=== PATIENT | male | born 1965 | race Caucasian/White ===

== ENCOUNTER 2020-06-29 13:31 | Emergency (ER) | payer MEDICARE, MEDICAID, SELFPAY ==
[2020-06-29] VITALS (7 sets, daily range): BP systolic 135–170; BP diastolic 66–95; PULSE 85–94; RESP 17–22; TEMP 36.7–37.1; O2SAT 94–97; BMI 45.7
--- NOTE | 2020-06-29 | ECG_ITS ---
Test Reason : CHEST PAIN Blood Pressure : / mmHG Vent. Rate : 082 BPM Atrial Rate : 082 BPM P-R Int : 146 ms QRS Dur : 068 ms QT Int : 352 ms P-R-T Axes : 042 -02 086 degrees QTc Int : 411 ms Normal sinus rhythm Nonspecific T wave abnormality Abnormal ECG No previous ECGs available Referred By: Joann Eaton Electronically Signed By:RAJ OH MD
--- NOTE | ~2020-06-29 | XR_ITS ---
EXAMINATION: XR CHEST CLINICAL INFORMATION: Cough. COMPARISON: 05/28/2018 TECHNIQUE: Frontal view of the chest was obtained. FINDINGS: Stable cardiac and mediastinal silhouette. Low lung volumes. No evidence of focal consolidation. No effusion, edema or pneumothorax. XR/XR chest 1V IMPRESSION: No confluent airspace disease seen.
--- NOTE | 2020-06-29 14:02 | ED.URI ---
HPI - URI/Sore Throat General Chief Complaint: Chest Pain Stated Complaint: EKG CHANGE? Time Seen by Provider: 06/29/20 14:01 Source: patient and EMS Mode of arrival: EMS Limitations: other (cognitive delay) History of Present Illness HPI Narrative: 55 yo male with asthma, HTN, HPL, cognitive impairment here with 1 week of cough, feels short of breath on exertion he denies chest pain to me, has not used his neb or rescue inhaler sent by for T wave inversions in lateral leads no prior EKGs noted in our system MD elicited complaint: cough Pertinent past history: asthma Onset (ago): week(s) (1) Consistency: constant Severity: mild Able to tolerate fluids by mouth: Yes Exacerbating factors: exertion Relieving factors: nothing Associated symptoms: cough and shortness of breath Treatments prior to arrival: none Related Data Previous Rx's Medication Instructions Recorded prednisone 40 mg PO DAILY 5 Days #10 tab 06/29/20 Allergies Allergy/AdvReac Type Severity Reaction Status Date / Time No Known Allergies Allergy Verified 06/29/20 13:49 [No Known Allergies*] Review of Systems Review of Systems: Constitutional : No Fever, No Chills ENT/Mouth : No sore throat, No Rhinorrhea, No Swallowing Difficulty Eyes: No Eye Pain, No Swelling, No Redness Cardiovascular : No Chest Pain, positive SOB, No Orthopnea, no Edema Respiratory : pos Cough, No Sputum, pos Wheezing, positive dyspnea Gastrointestinal : No Nausea, No Vomiting, No Diarrhea, No abdominal Pain, No Hematochezia, No Melena Genitourinary : No Dysuria, No Urinary Frequency, No Hematuria Musculoskeletal : No joint pain, No Myalgias Skin : No Skin Lesions, No rash Neuro : No Weakness, No Numbness, No Dizziness, No Headache Psych : No Anxiety/Panic, No Depression Heme/Lymph: No Bruising, No Lymphadenopathy Endocrine : No Polyuria, No Polydipsia All other systems reviewed and are negative PMFSH Past Medical History Medical History Asthma Dyslipidemia GERD (gastroesophageal reflux disease) HTN (hypertension) Intellectual disability Social History Social History Alcohol intake: unknown Smoking Status: Unknown if ever smoked Use of substances other than those prescribed or required for medical reasons: Unknown Advance Directives: No Advance Directives Information Provided: No Physical Exam Vital Signs: Vital Signs: Last Vital Signs Temp 98.0 F 06/29/20 16:30 Pulse 85 06/29/20 16:30 Resp 22 H 06/29/20 16:30 BP 135/87 06/29/20 16:30 Pulse Ox 94 06/29/20 16:30 Body Mass Index 45.7 Appearance: Alert. Oriented X3. No acute distress. Eyes: Pupils equal, round and reactive to light. ENT: Pharynx normal. Neck: Normal inspection. Neck supple. CVS: Normal heart rate and rhythm. Pulses normal. Respiratory: No respiratory distress. Breath sounds end exp wheezes posteriorly noted Abdomen: Soft and nontender. Skin: Skin warm and dry. Normal skin color. Normal skin turgor. Extremities: No lower extremity edema. No calf ttp Neuro: Oriented X 3. No motor deficit. No sensory deficit. Course Course Course Narrative: signed out pending repeat troponin for 5pm given EKG changes has no chest pain cannot find old one the patient states he feels much better after neb and that he does not have chest pain I do not think he has ACS, EKG changes could be old, if repeat troponin negative would send home with steroids signed out pending troponin to [facility] M[facility] - URI/Sore Throat MDM Narrative Medical decision making narrative: 55 yo male with asthma, HTN, HPL, cognitive impairment who comes in with c/o cough and feeling short of breath x 1 week, he denies chest pain to me but was sent from the clinic due to t wave inversions in the lateral leads - will need labs, EKG, troponin, he is wheezing slightly so neb ordered, EKG requests to [facility] and Mariel for prior Lab Data Result diagrams: 06/29/20 14:27 06/29/20 14:27 Labs: Lab Results 06/29/20 06/29/20 06/29/20 Range/Units 14:27 14:27 14:27 WBC 8.5 (4.8-10.8) X10*3/uL RBC 5.48 (4.60-5.80) X10*6/uL Hgb 15.8 (14.0-18.0) g/dl Hct 46.8 (42-52) % MCV 85.4 (80-98) fL MCH 28.8 (27.0-33.0) pg MCHC 33.8 (31.0-36.0) g/dl RDW 12.6 (11.0-16.0) % Plt Count 220 (160-400) X10*3/uL MPV 9.5 (9.4-12.4) fL Immature Gran % (Auto) 0.8 H (0.0-0.4) % Neut % (Auto) 69.1 (45-73) % Lymph % (Auto) 22.0 (20-40) % [place] % (Auto) 6.9 (2-11) % Eos % (Auto) 0.7 (0-4) % Baso % (Auto) 0.5 (0-2) % Lymph # (Auto) 1.9 (1.2-4.9) X10*3/uL [place] # (Auto) 0.6 (0.1-1.2) X10*3/uL Eos # (Auto) 0.1 (0.0-0.4) X10*3/uL Baso # (Auto) 0.0 (0.0-0.2) X10*3/uL Abs Immat Gran (auto) 0.07 H (0.00-0.03) X10*3/uL Absolute Neuts (auto) 5.9 (2.0-8.3) X10*3/uL Absolute Nucleated RBC 0.000 (0.0-0.012) X10*3/uL Nucleated RBC % (auto) 0.0 (0.0-0.2) /100WBC PT 12.8 (10.8-13.0) SEC INR 1.1 (0.9-1.1) APTT 33.3 (24.1-38.0) SEC Sodium 141 (135-145) mmol/L Potassium 4.0 (3.3-5.1) mmol/L Chloride 105 (96-108) mmol/L Carbon Dioxide 28 (22-29) mmol/L Anion Gap 12 (12-20) BUN 14 (9-16) mg/dL Creatinine 1.09 (0.5-1.4) mg/dL Estim Creat Clear Calc 86.6 Estimated GFR > 60 Random Glucose 108 (60-115) mg/dL Calcium 9.0 (8.4-10.2) mg/dL Magnesium 1.9 (1.6-2.6) mg/dL Total Bilirubin 0.6 (0.0-1.0) mg/dL Direct Bilirubin 0.3 (0.0-0.5) mg/dL AST 32 (5-37) U/L ALT 40 (0-40) U/L Alkaline Phosphatase 85 (39-117) U/L Troponin I High Sens (<3.5-35.0) ng/L B-Natriuretic Peptide (<100) pg/mL Total Protein 7.4 (6.5-8.0) g/dL Albumin 4.1 (3.5-5.0) g/dL Coronavirus (PCR) (Negative) Influenza Type A (PCR) (Negative) Influenza Type B (PCR) (Negative) RSV RNA Qual (PCR) (Negative) 06/29/20 06/29/20 Range/Units 14:27 14:28 WBC (4.8-10.8) X10*3/uL RBC (4.60-5.80) X10*6/uL Hgb (14.0-18.0) g/dl Hct (42-52) % MCV (80-98) fL MCH (27.0-33.0) pg MCHC (31.0-36.0) g/dl RDW (11.0-16.0) % Plt Count (160-400) X10*3/uL MPV (9.4-12.4) fL Immature Gran % (Auto) (0.0-0.4) % Neut % (Auto) (45-73) % Lymph % (Auto) (20-40) % [place] % (Auto) (2-11) % Eos % (Auto) (0-4) % Baso % (Auto) (0-2) % Lymph # (Auto) (1.2-4.9) X10*3/uL [place] # (Auto) (0.1-1.2) X10*3/uL Eos # (Auto) (0.0-0.4) X10*3/uL Baso # (Auto) (0.0-0.2) X10*3/uL Abs Immat Gran (auto) (0.00-0.03) X10*3/uL Absolute Neuts (auto) (2.0-8.3) X10*3/uL Absolute Nucleated RBC (0.0-0.012) X10*3/uL Nucleated RBC % (auto) (0.0-0.2) /100WBC PT (10.8-13.0) SEC INR (0.9-1.1) APTT (24.1-38.0) SEC Sodium (135-145) mmol/L Potassium (3.3-5.1) mmol/L Chloride (96-108) mmol/L Carbon Dioxide (22-29) mmol/L Anion Gap (12-20) BUN (9-16) mg/dL Creatinine (0.5-1.4) mg/dL Estim Creat Clear Calc Estimated GFR Random Glucose (60-115) mg/dL Calcium (8.4-10.2) mg/dL Magnesium (1.6-2.6) mg/dL Total Bilirubin (0.0-1.0) mg/dL Direct Bilirubin (0.0-0.5) mg/dL AST (5-37) U/L ALT (0-40) U/L Alkaline Phosphatase (39-117) U/L Troponin I High Sens < 3.5 (<3.5-35.0) ng/L B-Natriuretic Peptide < 10 (<100) pg/mL Total Protein (6.5-8.0) g/dL Albumin (3.5-5.0) g/dL Coronavirus (PCR) NEGATIVE (Negative) Influenza Type A (PCR) NEGATIVE (Negative) Influenza Type B (PCR) NEGATIVE (Negative) RSV RNA Qual (PCR) NEGATIVE (Negative) ECG Data Attestation: I personally reviewed and interpreted this ECG as follows: ECG interpretation date: 06/29/20 ECG interpretation time: 14:27 Interpretation: Rate: 82 Rhythm: NSR [place]: left Normal P waves. Normal JESSICA. Normal QRS complex. ST T wave : no EDUARDO, inverted I and aVL, V5-V6 qTC: normal prior studies: no prior studies at this time The study has been interpreted contemporaneously by me. . Discharge Plan Discharge Clinical Impression: Cough, Abnormal ECG Instructions: Acute Cough (ED) Additional Instructions: return to ED for any worsening symptoms or concerns Prescriptions: New prednisone 20 mg tablet 40 mg PO DAILY 5 Days Qty: 10 RF: 0 Referrals: Aniya Gaines MD [Primary Care Provider] - 2 days (outpatient stress test)
[2020-06-29] MEDS: Albuterol Sulfate (0.083%) 2.5 MG/3 ML VIAL.NEB INHALE (14:13)
[2020-06-29 14:33] LABS: MANUAL DIFF FLAG NO
[2020-06-29 14:35] LABS: Basophils Percent Auto 0.5 % (0-2); Eosinophils Absolute Auto 0.1 X10*3/uL (0.0-0.4); Eosinophils Percent Auto 0.7 % (0-4); Hematocrit 46.8 % (42-52); Hemoglobin 15.8 g/dl (14.0-18.0); Imm Gran Abs Auto 0.07 X10*3/uL (0.00-0.03); Imm Gran Pct Auto 0.8 % (0.0-0.4); Lymphocytes Absolute Auto 1.9 X10*3/uL (1.2-4.9); Mean Corpuscular HGB Conc 33.8 g/dl (31.0-36.0); Mean Corpuscular Hemoglobin 28.8 pg (27.0-33.0); Mean Corpuscular Volume 85.4 fL (80-98); Mean Platelet Volume 9.5 fL (9.4-12.4); Monocytes Absolute Auto 0.6 X10*3/uL (0.1-1.2); Monocytes Percent Auto 6.9 % (2-11); Neutrophils Absolute Auto 5.9 X10*3/uL (2.0-8.3); Neutrophils Percent Auto 69.1 % (45-73); Platelet Count 220 X10*3/uL (160-400); Red Blood Count 5.48 X10*6/uL (4.60-5.80); Red Cell Distribution Width 12.6 % (11.0-16.0); White Blood Count 8.5 X10*3/uL (4.8-10.8)
[2020-06-29 14:42] LABS: INTERNATIONAL NORM RATIO 1.1 (0.9-1.1); Prothrombin Time 12.8 SEC (10.8-13.0)
[2020-06-29 14:45] LABS: Partial Thromboplastin Time 33.3 SEC (24.1-38.0)
[2020-06-29 15:01] LABS: Alanine Aminotransferase 40 U/L (0-40); Albumin Level 4.1 g/dL (3.5-5.0); Alkaline Phosphatase 85 U/L (39-117); Anion Gap 12 (12-20); Aspartate Amino Transferase 32 U/L (5-37); Bilirubin Direct 0.3 mg/dL (0.0-0.5); Bilirubin Total 0.6 mg/dL (0.0-1.0); Blood Urea Nitrogen 14 mg/dL (9-16); Carbon Dioxide 28 mmol/L (22-29); Chloride 105 mmol/L (96-108); Creatinine Clr Calc Pharmacy 86.6; Estimated Glomerular Filt Rate > 60; Glucose Random 108 mg/dL (60-115); Magnesium 1.9 mg/dL (1.6-2.6); Sodium 141 mmol/L (135-145); Total Protein 7.4 g/dL (6.5-8.0)
[2020-06-29 15:07] LABS: B Type Natriuretic Peptide < 10 pg/mL (<100); Troponin-I High Sensitivity < 3.5 ng/L (<3.5-35.0)
[2020-06-29 15:36] LABS: Influenza A PCR NEGATIVE (Negative); Influenza B PCR NEGATIVE (Negative); Resp Syncy Virus RNA Qual PCR NEGATIVE (Negative); SARS COV2 PCR INHOUSE NEGATIVE (Negative)
[2020-06-29] MEDS: Albuterol Sulfate 90 MCG 8 GM INHALER 2 PUFF INHALE (16:58)
[2020-06-29] MEDS: methylPREDNISolone Sod Succ/PF 125 MG/2 ML VIAL 60 MG IVPUSH (17:05)
[2020-06-29 17:54] LABS: Troponin-I High Sensitivity < 3.5 ng/L (<3.5-35.0)
== END 2020-06-29 19:31 | disposition home or self-care (01) ==
PROVIDERS: Emergency Provider Emergency Medicine; PCP Family Medicine
DX: R05 Cough (principal); R94.31 Abnormal electrocardiogram [ECG] [EKG]; Z20.822 Contact with and (suspected) exposure to COVID-19; I10 Essential (primary) hypertension; J45.909 Unspecified asthma, uncomplicated; K21.9 Gastro-esophageal reflux disease without esophagitis
CPT/HCPCS: 0241U; 36415; 71045; 80048; 80076; 83735; 83880; 84484; 85025; 85610; 85730; 93005; 94640; 96374; 99284; 99285; J2930

== ENCOUNTER 2020-07-22 09:49 | Emergency (ER) | payer MEDICARE, MEDICAID, SELFPAY ==
--- NOTE | ~2020-07-22 | XR_ITS ---
EXAMINATION: XR ELBOW, RIGHT XR ELBOW, LEFT CLINICAL INFORMATION: Fall, trauma approximately 2 weeks ago. Bilateral elbow pain. COMPARISON: Radiographs right shoulder 07/22/2020 TECHNIQUE: The right elbow is imaged in 4 views. The left elbow is imaged in 3 views. There are a total of 7 views. FINDINGS: Right: There is no fracture or dislocation or capsular effusion. Articular surfaces are unremarkable. No joint narrowing. There is borderline line epicondylar spurring. Left: There is subtle fracture suggested at base radial head. The articular surfaces are unremarkable. There are no other fractures or dislocation or destructive process. No definite capsular effusion. There is some borderline spurring lateral epicondyle. XR/XR elbow LT min 3V IMPRESSION: 1. Left: Fracture base radial head. 2. Right: No fracture or dislocation.
--- NOTE | ~2020-07-22 | XR_ITS ---
EXAMINATION: XR SHOULDER, RIGHT CLINICAL INFORMATION: Fall, trauma, pain COMPARISON: Chest radiographs 06/29/2020 TECHNIQUE: Right shoulder is imaged in 3 views. FINDINGS: There is a hairline nondisplaced fracture humeral head at base greater tuberosity. There is no dislocation or destructive process. The acromioclavicular alignment is normal. The right lung apex is well expanded and shows no pneumothorax or pleural reaction. XR/XR shoulder RT min 2V IMPRESSION: Fracture base greater tuberosity.
--- NOTE | ~2020-07-22 | XR_ITS ---
EXAMINATION: XR ELBOW, RIGHT XR ELBOW, LEFT CLINICAL INFORMATION: Fall, trauma approximately 2 weeks ago. Bilateral elbow pain. COMPARISON: Radiographs right shoulder 07/22/2020 TECHNIQUE: The right elbow is imaged in 4 views. The left elbow is imaged in 3 views. There are a total of 7 views. FINDINGS: Right: There is no fracture or dislocation or capsular effusion. Articular surfaces are unremarkable. No joint narrowing. There is borderline line epicondylar spurring. Left: There is subtle fracture suggested at base radial head. The articular surfaces are unremarkable. There are no other fractures or dislocation or destructive process. No definite capsular effusion. There is some borderline spurring lateral epicondyle. XR/XR elbow RT min 3V IMPRESSION: 1. Left: Fracture base radial head. 2. Right: No fracture or dislocation.
[2020-07-22 10:20] VITALS: BP 147/92; PULSE 100; RESP 16; TEMP 36.6; O2SAT 96; BMI 45.9
--- NOTE | 2020-07-22 10:27 | PC.NURSE ---
FELL FORWARD LANDING WITH BILATERAL ARMS OUTSTRETCHED, +LARGE BRUISE LEFT UPPER ARM, PTS AFFECT IS SLOW, DENIES BLOOD THINNERS
--- NOTE | 2020-07-22 12:01 | ED_ITS ---
HPI - Extremity Problem General Chief complaint: Extremity Injury, Upper Stated complaint: bilateral arm pain Time Seen by Provider: 07/22/20 10:42 Source: patient Mode of arrival: ambulatory Limitations: no limitations History of Present Illness HPI Narrative: 55-year-old male with a past medical history of Intellectual disability, hypertension, dyslipidemia, GERD and asthma presenting to the ED after he was crossing the street and tripped due to he was walking too fast to cross the street landing on his bilateral hands then onto his elbows and shoulders approximately 2 weeks ago with persistent pain and worsening pain today. Reports he has noticed bruising to the left upper arm. Denies head injury or loss of consciousness or being on any blood thinners or paresthesias or any other injuries complaints or concerns at this time. MD Complaint: extremity pain, joint swelling and joint paint Onset (ago): week(s) (Two weeks ago worse today) Pain Consistency: constant Location: left, right, upper extremity and elbow Severity scale (1-10): 10 Quality: aching Radiation: proximal Relieving factors: nothing Exacerbating factors: range of motion and palpation Associated symptoms: denies other symptoms Related Data Previous Rx's Medication Instructions Recorded prednisone 40 mg PO DAILY 5 Days #10 tab 06/29/20 acetaminophen [Tylenol Extra 1,000 mg PO QID PRN #14 tab 07/22/20 Strength] ibuprofen 800 mg PO Q8H PRN #14 tab 07/22/20 oxycodone 5 mg PO BID PRN #10 tab 07/22/20 Allergies Allergy/AdvReac Type Severity Reaction Status Date / Time No Known Allergies Allergy Verified 06/29/20 13:49 [No Known Allergies*] Review of Systems Review of Systems: Constitutional : No changes in activity, No lethargy, No recent prior head injury, No agitation, No increased fussiness ENT/Mouth : No Ear Pain, No Nasal discharge/drainage Eyes: No Eye Pain, No Swelling, No Redness, No Foreign Body, No Vision Changes Cardiovascular : No Chest Pain, No SOB Respiratory : No Cough Gastrointestinal : No Nausea, No Vomiting, No abdominal Pain Genitourinary : No Dysuria, No Urinary Frequency, No Urinary Incontinence, No Urgency, No Flank Pain Musculoskeletal : + joint pain, No neck stiffness, No back pain/injury Skin : No lacerations Neuro : No unsteady gait, No Paresthesias, No Loss of Consciousness, No altered mental status, No Headache Yes all other systems are reviewed and are negative [facility] Past Medical History Attestation statement: The following information was validated with the patient. Medical History Asthma Dyslipidemia GERD (gastroesophageal reflux disease) HTN (hypertension) Intellectual disability Social History Social History Alcohol intake: unknown Smoking Status: Unknown if ever smoked Smoked in Last 30 Days: No Use of substances other than those prescribed or required for medical reasons: No Advance Directives: No Advance Directives Information Provided: No Physical Exam Vital Signs: Vital Signs: Last Vital Signs Temp 97.8 F 07/22/20 10:20 Pulse 100 07/22/20 10:20 Resp 16 07/22/20 10:20 BP 147/92 H 07/22/20 10:20 Pulse Ox 96 07/22/20 10:20 Body Mass Index 45.9 vital signs have been reviewed as normal and appeared to be correct. Blood pressure normal. Heart rate normal. Respiration rate normal. Temperature normal. Oxygen saturation normal. Appearance: Alert. Oriented X3. No acute distress. Head: Normal external exam. Normocephalic. Atraumatic. Eyes: PERRLA. EOMI. Conjunctiva and sclera normal. Eyelids normal. ENT: Pharynx normal. Uvula midline. Moist mucous membranes. Neck: Normal inspection. Neck supple. FROM. No adenopathy. Thyroid Normal. No meningeal signs. No neck mass noted. CVS: Normal heart rate and rhythm. Heart sound normal. No murmurs noted. Pulses normal throughout. Respiratory: No respiratory distress. Painless inspiration. Breath sounds normal. Back: No CVA tenderness. Full range of motion noted. Skin: Skin warm and dry. Normal skin color. Normal skin turgor. No rashes/lesions/lacerations noted. Extremities: Patient with tenderness to palpation to anterior aspect of right shoulder with limited range of motion although no laxity noted. No obvious deformities noted. No signs of infection noted. Patient with tenderness to palpation to bilateral elbows worse on the left at the radial head with ecchymosis noted. No laxity or signs of infection noted. No obvious deformities noted. Otherwise all other Extremities exhibit normal range of motion and nontender. Neuro: Oriented X 3. No motor deficit. No sensory deficit. Reflexes normal. Course Course Course Narrative: 55-year-old male presenting to the ED after he tripped and fell on the street while crossing the street trying to [place] with injuries to his bilateral elbows and right shoulder with persistent pain x2 weeks worse today. Imaging obtained and revealed left fracture base of the radial head of the elbow and fracture to right base of greater tuberosity. Therefore will place in a splint to the right arm and allow the patient to move his left arm with orthopedic follow-up and symptomatic treatment along with instructions return if any new or worsening symptoms. Patient understands agrees with this plan. Procedures Orthopedic Splinting/Casting Injury #1: Side: right Upper Extremity Injury Location: shoulder and upper arm Upper Extremity Immobilizer: sling/shoulder immobilizer MDM - Extremity (Nontraumatic) Medical Records Attestation: I reviewed the patient's medical records. Imaging Data Right shoulder: Attestation: I personally reviewed and interpreted this imaging study as follows: Radiologist's impression: FINDINGS: There is a hairline nondisplaced fracture humeral head at base greater tuberosity. There is no dislocation or destructive process. The acromioclavicular alignment is normal. The right lung apex is well expanded and shows no pneumothorax or pleural reaction. XR/XR shoulder RT min 2V IMPRESSION: Fracture base greater tuberosity. Bilateral elbows: Attestation: I personally reviewed and interpreted this imaging study as follows: Radiologist's impression: FINDINGS: Right: There is no fracture or dislocation or capsular effusion. Articular surfaces are unremarkable. No joint narrowing. There is borderline line epicondylar spurring. Left: There is subtle fracture suggested at base radial head. The articular surfaces are unremarkable. There are no other fractures or dislocation or destructive process. No definite capsular effusion. There is some borderline spurring lateral epicondyle. XR/XR elbow LT min 3V IMPRESSION: 1. Left: Fracture base radial head. 2. Right: No fracture or dislocation. Discharge Plan Discharge Clinical Impression: Fall Qualifiers: Encounter type: initial encounter Qualified Code(s): W19.XXXA - Unspecified fall, initial encounter Closed fracture of head of left radius Qualifiers: Encounter type: initial encounter Fracture alignment: nondisplaced Qualified Code(s): S52.125A - Nondisplaced fracture of head of left radius, initial encounter for closed fracture Closed fracture of greater tuberosity of right humerus Qualifiers: Encounter type: initial encounter Fracture alignment: nondisplaced Qualified Code(s): S42.254A - Nondisplaced fracture of greater tuberosity of right humerus, initial encounter for closed fracture Patient Disposition: Home, Self-Care Instructions: Elbow Fracture (ED), How to Use a Sling (ED), Proximal Humerus Fracture (ED) Prescriptions: New ibuprofen 800 mg tablet 800 mg PO Q8H PRN (Reason: pain) Qty: 14 RF: 0 oxycodone 5 mg tablet 5 mg PO BID PRN (Reason: pain) Qty: 10 RF: 0 acetaminophen [Tylenol Extra Strength] 500 mg tablet 1,000 mg PO QID PRN (Reason: fever or pain) Qty: 14 RF: 0 No Action prednisone 20 mg tablet 40 mg PO DAILY 5 Days Qty: 10 RF: 0 Referrals: Kirill Kendall MD [Physician] - 2 days (Call today or tomorrow to make a follow-up appointment within the next week or 2) Stand Alone Forms: Work/School Release Print Language: Czech
== END 2020-07-22 13:23 | disposition home or self-care (01) ==
PROVIDERS: Emergency Provider Emergency Medicine Emergency Medical Services; PCP Family Medicine
DX: S42.254A Nondisplaced fracture of greater tuberosity of right humerus, initial encounter for closed fracture (principal); S52.125A Nondisplaced fracture of head of left radius, initial encounter for closed fracture; W01.0XXA Fall on same level from slipping, tripping and stumbling without subsequent striking against object, initial encounter; I10 Essential (primary) hypertension; E78.5 Hyperlipidemia, unspecified; K21.9 Gastro-esophageal reflux disease without esophagitis; J45.909 Unspecified asthma, uncomplicated; Y93.01 Activity, walking, marching and hiking; Y92.414 Local residential or business street as the place of occurrence of the external cause; Y99.9 Unspecified external cause status
CPT/HCPCS: 73030; 73080; 99283

== ENCOUNTER 2020-07-29 08:58 | Outpatient (REF) | payer MEDICARE, MEDICAID, SELFPAY ==
--- NOTE | ~2020-07-29 | XR_ITS ---
EXAMINATION: XR ELBOW, LEFT XR SHOULDER, RIGHT XR ELBOW, RIGHT CLINICAL INFORMATION: Fractures. COMPARISON: 07/22/2020 TECHNIQUE: Three-view right elbow, three-view left elbow, and three-view right shoulder. FINDINGS: LEFT ELBOW: Three views of the left elbow again demonstrate a nondisplaced radial head fracture. No dislocation is evident. No significant effusion is evident. There has been no change in alignment. RIGHT SHOULDER: On the provided imaging of the right shoulder, the fracture line is barely perceptible with no change in alignment and no displacement of fracture fragments. No dislocation is evident. Glenohumeral joint appears unremarkable. RIGHT ELBOW: Three views of the right elbow do not demonstrate any evidence of acute fracture or dislocation. Joint spaces are maintained. No effusion is present. XR/XR elbow LT min 3V IMPRESSION: No bony abnormality of the right elbow. No change in appearance or alignment of nondisplaced left radial head fracture. No displacement of right proximal humeral fracture.
--- NOTE | ~2020-07-29 | XR_ITS ---
EXAMINATION: XR ELBOW, LEFT XR SHOULDER, RIGHT XR ELBOW, RIGHT CLINICAL INFORMATION: Fractures. COMPARISON: 07/22/2020 TECHNIQUE: Three-view right elbow, three-view left elbow, and three-view right shoulder. FINDINGS: LEFT ELBOW: Three views of the left elbow again demonstrate a nondisplaced radial head fracture. No dislocation is evident. No significant effusion is evident. There has been no change in alignment. RIGHT SHOULDER: On the provided imaging of the right shoulder, the fracture line is barely perceptible with no change in alignment and no displacement of fracture fragments. No dislocation is evident. Glenohumeral joint appears unremarkable. RIGHT ELBOW: Three views of the right elbow do not demonstrate any evidence of acute fracture or dislocation. Joint spaces are maintained. No effusion is present. XR/XR shoulder RT min 2V IMPRESSION: No bony abnormality of the right elbow. No change in appearance or alignment of nondisplaced left radial head fracture. No displacement of right proximal humeral fracture.
--- NOTE | ~2020-07-29 | XR_ITS ---
EXAMINATION: XR ELBOW, LEFT XR SHOULDER, RIGHT XR ELBOW, RIGHT CLINICAL INFORMATION: Fractures. COMPARISON: 07/22/2020 TECHNIQUE: Three-view right elbow, three-view left elbow, and three-view right shoulder. FINDINGS: LEFT ELBOW: Three views of the left elbow again demonstrate a nondisplaced radial head fracture. No dislocation is evident. No significant effusion is evident. There has been no change in alignment. RIGHT SHOULDER: On the provided imaging of the right shoulder, the fracture line is barely perceptible with no change in alignment and no displacement of fracture fragments. No dislocation is evident. Glenohumeral joint appears unremarkable. RIGHT ELBOW: Three views of the right elbow do not demonstrate any evidence of acute fracture or dislocation. Joint spaces are maintained. No effusion is present. XR/XR elbow RT min 3V IMPRESSION: No bony abnormality of the right elbow. No change in appearance or alignment of nondisplaced left radial head fracture. No displacement of right proximal humeral fracture.
== END 2020-07-29 08:59 | disposition home or self-care (01) ==
LOC: HO.HOSX 08:58
PROVIDERS: Visit Provider Physician Assistant
DX: S42.201A Unspecified fracture of upper end of right humerus, initial encounter for closed fracture (principal); S52.123A Displaced fracture of head of unspecified radius, initial encounter for closed fracture; W01.0XXA Fall on same level from slipping, tripping and stumbling without subsequent striking against object, initial encounter; Y93.01 Activity, walking, marching and hiking; Y92.410 Unspecified street and highway as the place of occurrence of the external cause; Y99.8 Other external cause status; E78.5 Hyperlipidemia, unspecified; I10 Essential (primary) hypertension; F79 Unspecified intellectual disabilities
CPT/HCPCS: 73030; 73080; 99202

== ENCOUNTER 2020-08-26 10:21 | Outpatient (REF) | payer MEDICARE, MEDICAID, SELFPAY ==
--- NOTE | ~2020-08-26 | XR_ITS ---
EXAMINATION: XR SHOULDER, RIGHT CLINICAL INFORMATION: Right shoulder pain. COMPARISON: None TECHNIQUE: AP external rotation, Grashey, scapular Y, and axillary views of the right shoulder. FINDINGS: There is no acute fracture or dislocation. The joint spaces are unremarkable. Soft tissue fullness is seen in the region of the subdeltoid bursa. The soft tissues are otherwise unremarkable. XR/XR shoulder RT min 2V IMPRESSION: Soft tissue fullness in the region of the subdeltoid bursa. Bursal enlargement cannot be excluded. This could be confirmed with targeted soft tissue ultrasound. No acute underlying osseous abnormality.
--- NOTE | ~2020-08-26 | XR_ITS ---
EXAMINATION: XR ELBOW, LEFT CLINICAL INFORMATION: Left radial head fracture, follow-up. COMPARISON: Left elbow radiographs dated 07/29/2020. TECHNIQUE: AP, lateral, and oblique views of the left elbow. FINDINGS: A transverse lucency is seen at the level the metaphysis of the proximal radial head. The proximal ulna and distal humerus are intact. There is a probable small joint effusion. Mild soft tissue swelling is seen. XR/XR elbow LT min 3V IMPRESSION: Transverse lucency at the radial head without significant displacement is more pronounced compared to the previous study. This likely represents sequelae of healing. Refracture cannot be completely excluded. There is good anatomic alignment. Correlate with physical exam.
== END 2020-08-26 10:22 | disposition home or self-care (01) ==
LOC: HO.HOSX 10:21
PROVIDERS: Visit Provider Physician Assistant
DX: S42.201A Unspecified fracture of upper end of right humerus, initial encounter for closed fracture (principal); S52.123A Displaced fracture of head of unspecified radius, initial encounter for closed fracture; X58.XXXA Exposure to other specified factors, initial encounter; Y93.9 Activity, unspecified; Y92.9 Unspecified place or not applicable; Y99.9 Unspecified external cause status
CPT/HCPCS: 73030; 73080; 99212

== ENCOUNTER 2020-09-24 07:49 | Outpatient (REF) | payer MEDICARE, MEDICAID, SELFPAY ==
--- NOTE | ~2020-09-24 | XR_ITS ---
EXAMINATION: XR SHOULDER, RIGHT XR ELBOW, LEFT CLINICAL INFORMATION: Fracture right shoulder. COMPARISON: Right shoulder and left elbow 08/26/2020. TECHNIQUE: 3 views right shoulder and 3 views left elbow. FINDINGS: RIGHT SHOULDER: There is a minimally displaced right greater tuberosity fracture with break in the cortex laterally. No dislocation. No additional fracture seen. There is mild periarticular spurring right AC joint. LEFT ELBOW: There is a radial neck fracture without displacement. The ulnohumeral and radio humeral joint space is maintained normal. There is minimal joint effusion suspected. XR/XR shoulder RT min 2V IMPRESSION: Nondisplaced radial neck fracture is stable. No dislocation seen. There is minimal joint effusion. Minimally displaced right greater tuberosity fracture with break in the lateral cortex is noted. It is stable.
--- NOTE | ~2020-09-24 | XR_ITS ---
EXAMINATION: XR SHOULDER, RIGHT XR ELBOW, LEFT CLINICAL INFORMATION: Fracture right shoulder. COMPARISON: Right shoulder and left elbow 08/26/2020. TECHNIQUE: 3 views right shoulder and 3 views left elbow. FINDINGS: RIGHT SHOULDER: There is a minimally displaced right greater tuberosity fracture with break in the cortex laterally. No dislocation. No additional fracture seen. There is mild periarticular spurring right AC joint. LEFT ELBOW: There is a radial neck fracture without displacement. The ulnohumeral and radio humeral joint space is maintained normal. There is minimal joint effusion suspected. XR/XR elbow LT min 3V IMPRESSION: Nondisplaced radial neck fracture is stable. No dislocation seen. There is minimal joint effusion. Minimally displaced right greater tuberosity fracture with break in the lateral cortex is noted. It is stable.
== END 2020-09-24 07:50 | disposition home or self-care (01) ==
LOC: HO.HOSX 07:49
PROVIDERS: Visit Provider Physician Assistant
DX: S52.123A Displaced fracture of head of unspecified radius, initial encounter for closed fracture (principal); S42.253A Displaced fracture of greater tuberosity of unspecified humerus, initial encounter for closed fracture; X58.XXXA Exposure to other specified factors, initial encounter; Y93.9 Activity, unspecified; Y92.9 Unspecified place or not applicable; Y99.8 Other external cause status; E78.5 Hyperlipidemia, unspecified; I10 Essential (primary) hypertension
CPT/HCPCS: 73030; 73080; 99212

== ENCOUNTER 2020-11-01 11:21 | Outpatient (REF) | payer MEDICARE, MEDICAID, SELFPAY | END 2020-11-01 11:22 | disposition home or self-care (01) | LOC: HO.HOSX 11:21 | PROVIDERS: Visit Provider Orthopaedic Surgery | DX: Z13.89 Encounter for screening for other disorder (principal) ==

== ENCOUNTER 2020-11-05 10:00 | Outpatient (RCR) | payer MEDICARE, MEDICAID, SELFPAY ==
--- NOTE | 2020-09-24 12:37 | MHC.PT.EP ---
[facility] [place] Office [place] Office [place] Office [address] [phone] F: [phone] F: [phone] F: [phone] F: [phone] Physical Therapy Plan of Care Date of Evaluation: Date of Surgery: NA Diagnosis: RIGHT HUMERAL FRACTURE, LEFT RADIAL FRACTURE Assessment: Pt IS A 55 YO MALE WITH FOOSH RESULTING IN RIGHT HUMERAL FRACTURE AND LEFT RADIAL HEAD FRACTURE FOLLOWING FALL. UPON EXAM HE DEMONSTRATES DECREASED SHOULDER AND ARM ROM AND STRENGTH BRENDA, ALTERED POSTURE AND POSITIONING, DECREASED SOFT TISSUE MOBILITY, INCREASED PAIN. FUNCTIONAL LIMITATIONS INCLUDE DECREASED ABILITY TO PERFORM LIFTING, REACHING, PUSHING AND PULLING. HE REPORTS DECREASED PARTICIPATION IN WORK AND COMMUNITY TASKS, DISRUPTED SLEEP Frequency and Duration: The patient will be seen 2 X WEEK FOR 4 WEEKS Short Term Goals: INITIATE HEP AND PROMOTE SELF MANAGEMENT OF SYMPTOMS Fpc Goals: Full, pain free ROM in 5 weeks Full UE strength, pain free in 5 weeks To perform work tasks without restriction and pain no greater than 2/10 in [address] at minimum of 5# into cabinet at shoulder height in 5 weeks Treatment Plan: Modalities to reduce pain, spasms and effusion. Manual therapy to restore motion and function. Therapeutic exercise to improve strength and flexibility. Neuromuscular re-education for posture and balance. Therapeutic activities to return to functional activities of daily living. Electronically signed by: CALDERON MILLAN PT, DPT Please sign and return to therapist. Thank you for your referral.
--- NOTE | 2020-12-13 07:51 | MHC.PT.DC ---
[facility] [place] Office [place] Office [place] Office [address] [phone] F: [phone] F: [phone] F: [phone] F: [phone] Physical Therapy Discharge Report Diagnosis: RIGHT HUMERAL FRACTURE, LEFT RADIAL FRACTURE Date of Surgery: DOI 07/22/20 Date of Evaluation: 09/23/20 Date of Discharge: 11/13/20 Treatments to Date: 9 Cancellations to Date: 0 No Shows to Date: 0 Discharge Status: Discharge Summary: Evin did not schedule additional visits with our office, current status is unknown. At last attended visit, note states: pt requires cues and direct supervision for ex. form. Today pt reported pinching ant right shoulder on UBE d/c at 6 mins. Pt has variable balance. Today noted to have multiple LOB. self corrected. Will discuss plan with primary PT Electronically signed by: Whitney Carroll PT, DPT Please sign and return to therapist. Thank you for your referral.
== END 2020-12-13 07:52 | disposition home or self-care (01) ==
LOC: HO.PT 10:00
PROVIDERS: Visit Provider Physician Assistant
DX: S42.201D Unspecified fracture of upper end of right humerus, subsequent encounter for fracture with routine healing (principal); S52.123D Displaced fracture of head of unspecified radius, subsequent encounter for closed fracture with routine healing
CPT/HCPCS: 97110; 97162; 97530

== ENCOUNTER 2021-10-19 08:04 | Outpatient (REF) | payer MEDICARE, MEDICAID, SELFPAY ==
--- NOTE | ~2021-10-19 | XR_ITS ---
EXAMINATION: XR KNEE, LEFT CLINICAL INFORMATION: Pain left knee COMPARISON: None TECHNIQUE: Four views of the left knee. FINDINGS: No fracture, dislocation, or definite suprapatellar effusion. Hoffa's fat pad appears normal. There is no joint narrowing or erosive change or chondrocalcinosis. No lateralization patella. No destructive process. XR/XR knee LT 4V IMPRESSION: Unremarkable left knee.
== END 2021-10-19 08:05 | disposition home or self-care (01) ==
LOC: HO.XRAY 08:04
PROVIDERS: PCP Family Medicine; Visit Provider Family Medicine
DX: M25.562 Pain in left knee (principal)
CPT/HCPCS: 73564

== ENCOUNTER 2021-11-30 13:14 | Outpatient (REF) | payer MEDICARE, MEDICAID, SELFPAY ==
[2021-11-30 14:58] LABS: Vitamin B12 253 pg/mL (200-900)
== END 2021-11-30 13:15 | disposition home or self-care (01) ==
LOC: HO.LAB 13:14
PROVIDERS: PCP Family Medicine; Visit Provider Psychiatry & Neurology Neurology
DX: G93.49 Other encephalopathy (principal)
CPT/HCPCS: 36415; 82607

== ENCOUNTER 2022-01-03 07:55 | Outpatient (REF) | payer MEDICARE, MEDICAID, SELFPAY ==
--- NOTE | ~2022-01-03 | XR_ITS ---
EXAMINATION: XR KNEE AP STANDING CLINICAL INFORMATION: Pain COMPARISON: Right knee x-ray February 2019 and left knee x-ray October 2021 TECHNIQUE: AP bilateral standing view of the knees was obtained. FINDINGS: There is medial femoral tibial joint space narrowing bilaterally, right greater than left. There is mild varus angulation at the right knee joint. XR/XR knee standing BI IMPRESSION: Joint space narrowing at the medial femoral tibial joints, right greater than left and mild right varus angulation.
== END 2022-01-03 07:56 | disposition home or self-care (01) ==
LOC: HO.HOSX 07:55
PROVIDERS: Visit Provider Physician Assistant
DX: M17.12 Unilateral primary osteoarthritis, left knee (principal)
CPT/HCPCS: 20610; 73565; 99212; J1040

== ENCOUNTER 2022-03-22 13:03 | Outpatient (REF) | payer MEDICARE, MEDICAID, SELFPAY ==
--- NOTE | ~2022-03-22 | US_ITS ---
EXAMINATION: ULTRASOUND EXTREMITY NONVASCULAR CLINICAL INFORMATION: Mass or lump left arm COMPARISON: None TECHNIQUE: Grayscale and color imaging of the left forearm and area of lump FINDINGS: No solid or cystic soft tissue mass or fluid collection is seen. US/US extremity nonvascular IMPRESSION: No abnormality seen by ultrasound.
== END 2022-03-22 13:04 | disposition home or self-care (01) ==
LOC: HO.US 13:03
PROVIDERS: Visit Provider Family Medicine
DX: R22.32 Localized swelling, mass and lump, left upper limb (principal)
CPT/HCPCS: 76882

== ENCOUNTER 2022-04-04 | Outpatient (REF) | payer MEDICARE, MEDICAID, SELFPAY ==
--- NOTE | ~2022-04-04 | XR_ITS ---
EXAMINATION: XR KNEE, RIGHT CLINICAL INFORMATION: Pain COMPARISON: Previous x-ray December 2021 and February 2019 TECHNIQUE: Two views of the right knee. FINDINGS: Bone alignment is normal. No fracture or dislocation. Mild medial femoral tibial joint space narrowing and meniscal calcification. Small osteophytes at the patellofemoral joint. No joint effusion. XR/XR knee RT 2V IMPRESSION: Mild degenerative changes.
== END 2022-04-04 00:01 ==
LOC: HO.HOSX
PROVIDERS: Visit Provider Physician Assistant
DX: S86.811A Strain of other muscle(s) and tendon(s) at lower leg level, right leg, initial encounter (principal)
CPT/HCPCS: 73560; 99212

== ENCOUNTER 2023-01-22 10:23 | Outpatient (AMB) | payer MEDICARE, MEDICAID, SELFPAY ==
--- NOTE | 2023-01-22 10:37 | MHC.OFFVIS ---
Intake Vital Signs 01/22/23 10:40 Height 5 ft 2 in Weight 239 lb BMI 43.7 Intake Visit Reasons: OV - Right knee pain Intake Note: Evin is a 56 year old male who presents today for a follow up of his right knee pain, last injection 01/03/22. Patient reports yesterday he felt a stiffness in his knee in the evening. He states his pain is worse when using the stairs. Allergies No Known Allergies [No Known Allergies*] Allergy (Verified 01/22/23 10:40) HPI OV - Right knee pain HPI Details 57-year-old male who presents in the office today for an evaluation of right knee pain. The patient has a cortisone injection in the right knee on 01/03/2022. He claims he felt stiffness in the right knee in the evening. He reports increased pain with use of stairs. He states his pain along the medial aspect of the patella. He would like to inquire about a boot or knee brace to aid with his comfort. [facility], [facility] Medical History Asthma Dyslipidemia GERD (gastroesophageal reflux disease) HTN (hypertension) Intellectual disability Social History Alcohol intake: unknown Current occupational status: employed Current occupation: Lunchroom Supervisor - Right Handed Review of Systems Const All systems reviewed & are unremarkable except as noted in HPI and below Physical Exam Vital Signs: BMI result Body Mass Index 43.7 Const General: cooperative, healthy appearing and no acute distress Resp Effort & Inspection: normal respiratory effort and able to speak in complete sentences Cardio Rate: regular rate Peripheral pulses: Peripheral pulses 2+ throughout GI Palpation (GI): Soft to palpation Skin Lesions: no lesions Rashes: no rashes Extrem Other: Right knee: Normal to inspection. No ecchymosis, erythema, or joint effusion. No tenderness to palpation to the medial or lateral joint lines. Full knee extension and flexion. Crepitus felt with ROM. NVI. Office Procedures Joint Injection/Drain Joint Injection/Drain Primary Site: right knee Prep: site was prepped using aseptic technique, ethochloride spray was applied and injection warnings given Injected: 80 mg of, DepoMedrol, with 8 mL of (2% plain lido ) and in the joint Approach Used: anterolateral Procedure: The patient tolerated the procedure well, but had some pain with the injection and there was some relief with the local anesthesia Coding - Large joint Procedure code (CPT) selection complete Results Reviewed Results Reviewed: 01/22/23 10:55 Lidocaine HCl 2 % MPF [Xylocaine 2 % MPF] 5 ml .ROUTE .STK-MED ONE methylPREDNISolone acetate [DEPO-MedroL] 80 mg .ROUTE .STK-MED ONE Assessment & Plan Assessment & Plan (1) Osteoarthritis of right knee: Code(s): M17.11 - Unilateral primary osteoarthritis, right knee Qualifiers: Osteoarthritis type: unspecified Qualified Code(s): M17.11 - Unilateral primary osteoarthritis, right knee Plan Mr. Smith is a 57-year-old male who presents in the office today for an evaluation of right knee pain. The patient has a cortisone injection in the right knee on 01/03/2022. He claims he felt stiffness in the right knee in the evening. He reports increased pain with use of stairs. He states his pain along the medial aspect of the patella. He would like to inquire about a boot or knee brace to aid with his comfort. The patient was offered a cortisone injection in the right knee with 80 mg of DepoMedrol. The patient was explained the risk, benefits, and alternatives to receiving this injection. After receiving consent for the injection, the patient had the procedure done while in office today. The patient tolerated the procedure well with no complications. He will be placed in a Reddie knee brace, off the shelf, while in the office today. Follow up will be PRN, or sooner if needed. X-rays of the right knee which were obtained while in the office today and were reviewed by me, Vandana Mcfarland PA-C, revealed osteoarthritis. Orders: Orders XR knee RT 2V Today M25.569 - Pain in unspecified knee XR knee standing BI Today M25.569 - Pain in unspecified knee Patient Instructions: Scribed for Vandana Mcfarland PA-C by Mikala Wagner medical data analyst, on 01/22/2023 at 10:25 am, EST. Coding Level of Care Code Est Pt Level 3 (07578) Diagnoses Osteoarthritis of right knee, unspecified osteoarthritis type M17.11 Osteoarthritis type: unspecified CPT Codes Coding - Large joint: 72082 - Large joint ([id number])
[2023-01-22 10:40] VITALS: BMI 43.7
== END 2023-01-22 11:29 | disposition home or self-care (01) ==
PROVIDERS: PCP Family Medicine; Visit Provider Physician Assistant
DX: M17.11 Unilateral primary osteoarthritis, right knee (principal)
CPT/HCPCS: 20610; 99213

== ENCOUNTER 2023-01-22 10:42 | Outpatient (REF) | payer MEDICARE, MEDICAID, SELFPAY ==
--- NOTE | ~2023-01-22 | XR_ITS ---
EXAMINATION: XR KNEE, RIGHT XR KNEE, AP STANDING CLINICAL INFORMATION: Pain. COMPARISON: 01/03/2022, 04/04/2022 radiographs. TECHNIQUE: Two views of the right knee. 2 AP standing view of bilateral knees. FINDINGS: Mild medial joint space narrowing with varus angulation of the right knee. No significant joint effusion. Tiny tricompartmental osteophytes, right knee. Single AP standing view of the left knee demonstrates mild varus angulation with mild medial joint space narrowing. XR/XR knee RT 2V IMPRESSION: Mild degenerative changes, bilateral knees.
--- NOTE | ~2023-01-22 | XR_ITS ---
EXAMINATION: XR KNEE, RIGHT XR KNEE, AP STANDING CLINICAL INFORMATION: Pain. COMPARISON: 01/03/2022, 04/04/2022 radiographs. TECHNIQUE: Two views of the right knee. 2 AP standing view of bilateral knees. FINDINGS: Mild medial joint space narrowing with varus angulation of the right knee. No significant joint effusion. Tiny tricompartmental osteophytes, right knee. Single AP standing view of the left knee demonstrates mild varus angulation with mild medial joint space narrowing. XR/XR knee standing BI IMPRESSION: Mild degenerative changes, bilateral knees.
== END 2023-01-22 10:43 | disposition home or self-care (01) ==
LOC: HO.HOSX 10:42
PROVIDERS: Visit Provider Physician Assistant
DX: M17.11 Unilateral primary osteoarthritis, right knee (principal)
CPT/HCPCS: 20610; 73560; 73565; 99212; J1040

== ENCOUNTER 2023-07-03 13:45 | Outpatient (REF) | payer MEDICARE, MEDICAID, SELFPAY ==
[2023-07-03 16:19] LABS: MANUAL DIFF FLAG NO
[2023-07-03 16:23] LABS: Basophils Percent Auto 0.5 % (0-2); Eosinophils Absolute Auto 0.1 X10*3/uL (0.0-0.4); Eosinophils Percent Auto 1.2 % (0-4); Imm Gran Abs Auto 0.05 X10*3/uL (0.00-0.03); Imm Gran Pct Auto 0.6 % (0.0-0.4); Lymphocytes Absolute Auto 2.4 X10*3/uL (1.2-4.9); Lymphocytes Percent Auto 28.7 % (20-40); Mean Corpuscular HGB Conc 33.3 g/dl (31.0-36.0); Mean Corpuscular Hemoglobin 29.1 pg (27.0-33.0); Mean Corpuscular Volume 87.4 fL (80.0-98.0); Mean Platelet Volume 10.3 fL (9.4-12.4); Monocytes Absolute Auto 0.7 X10*3/uL (0.1-1.2); Monocytes Percent Auto 8.6 % (2-11); Neutrophils Percent Auto 60.4 % (45-73); Platelet Count 266 X10*3/uL (160-400); Red Blood Count 5.49 X10*6/uL (4.60-5.80); White Blood Count 8.2 X10*3/uL (4.8-10.8)
[2023-07-03 16:30] LABS: Estimated Average Glucose 120 mg/dL; Hemoglobin A1c % 5.8 % (<6.0)
[2023-07-03 16:48] LABS: Alanine Aminotransferase 35 U/L (0-40); Albumin Level 4.2 g/dL (3.5-5.0); Alkaline Phosphatase 80 U/L (39-117); Anion Gap 14 (12-20); Aspartate Amino Transferase 38 U/L (5-37); Bilirubin Total 0.6 mg/dL (0.0-1.0); Blood Urea Nitrogen 12 mg/dL (9-16); Calcium 9.2 mg/dL (8.4-10.2); Carbon Dioxide 27 mmol/L (22-29); Chloride 107 mmol/L (96-108); Cholesterol 202 mg/dL (<200); Estimated Glomerular Filt Rate > 60; Glucose Random 97 mg/dL (60-115); HDL Cholesterol 36 mg/dL (>40); LDL Cholesterol Calculated 108 mg/dL (<100); Potassium 3.5 mmol/L (3.3-5.1); Sodium 144 mmol/L (135-145); Total Protein 7.8 g/dL (6.5-8.0); Triglycerides 294 mg/dL (<150)
[2023-07-03 17:03] LABS: TSH reflex Free T4 1.98 uIU/mL (0.32-4.0); Uric Acid 5.9 mg/dL (3.4-7.0)
[2023-07-03 18:06] LABS: Reflex LDLD? No
== END 2023-07-03 13:46 | disposition home or self-care (01) ==
LOC: HO.HHCL 13:45
PROVIDERS: Visit Provider Family Medicine
DX: I10 Essential (primary) hypertension (principal); R73.03 Prediabetes; M79.89 Other specified soft tissue disorders
CPT/HCPCS: 36415; 80053; 80061; 83036; 84443; 84550; 85025

== ENCOUNTER 2023-07-16 12:49 | Outpatient (REF) | payer MEDICARE, MEDICAID, SELFPAY ==
--- NOTE | ~2023-07-16 | US_ITS ---
EXAMINATION: US VENOUS BILATERAL LOWER EXTREMITIES (REFLUX EXAM) CLINICAL INDICATION: Leg swelling and venous incompetence. COMPARISON: None available. TECHNIQUE: Color flow triplex imaging and compression Doppler was performed to evaluate both the deep and the superficial systems bilaterally. To evaluate the superficial system, the examination was performed in the upright position. Color-flow Doppler ultrasound and compression ultrasound were utilized. In addition, maneuvers were utilized to demonstrate reflux. FINDINGS: 1. DEEP VENOUS ULTRASOUND OF THE RIGHT LOWER EXTREMITY: Respiratory variation, normal compression and augmented flow are noted in the right common femoral vein as well as the right popliteal vein and there is no evidence of deep venous thrombosis at these locations. There is no evidence of reflux in the deep system in either the common femoral vein or the popliteal vein. There is no evidence of a Glaser's cyst. 2. SUPERFICIAL ULTRASOUND WITH DOPPLER OF RIGHT LOWER EXTREMITY: The right great saphenous vein at the saphenofemoral junction measures 7 mm, at the proximal thigh 7 mm, at the mid thigh 7 mm, above the knee 6 mm, at the knee 6 mm, below the knee 5 mm, midcalf 4 mm and at the ankle measures 4 mm. There is no reflux demonstrated in the right great saphenous vein. Duplicated Right Great Saphenous Vein: No. The right small saphenous vein measures 3 mm and shows no reflux. Accessory Vein of Giacomini: None. Incompetent Perforators: None. Varices Present: 3 mm sized varices are present. 3. DEEP VENOUS ULTRASOUND OF THE LEFT LOWER EXTREMITY: Respiratory variation, normal compression and augmented flow are noted in the left common femoral vein as well as the left popliteal vein and there is no evidence of deep venous thrombosis at these locations. There is no evidence of reflux in the deep system in either the common femoral vein or the popliteal vein. There is no evidence of a Glaser's cyst. 4. SUPERFICIAL ULTRASOUND WITH DOPPLER OF LEFT LOWER EXTREMITY: Left great saphenous vein at the saphenofemoral junction measures 9 mm, at the proximal thigh 6 mm, at the mid thigh 6 mm, above the knee 6 mm, at the knee 6 mm, below the knee 5 mm, midcalf 4 mm and at the ankle measures 4 mm. There is no reflux demonstrated in the left great saphenous vein. Duplicated Left Great Saphenous Vein: Yes. The great saphenous vein above is duplicated in the proximal and mid thigh without reflux as described above. The left small saphenous vein measures 3 mm and shows no reflux. Accessory Vein of Giacomini: None. Incompetent Perforators: None. Varices Present: 3 mm sized varices are present. US/US venous duplex LE BI IMPRESSION: 1. No evidence of reflux or thrombus in the common femoral veins or popliteal veins bilaterally. 2. The saphenous systems are competent bilaterally.
== END 2023-07-16 12:50 | disposition home or self-care (01) ==
LOC: HO.US 12:49
PROVIDERS: PCP Family Medicine; Visit Provider Family Medicine
DX: M79.89 Other specified soft tissue disorders (principal)
CPT/HCPCS: 93970

== ENCOUNTER 2023-11-05 08:36 | Outpatient (REF) | payer MEDICARE, MEDICAID, SELFPAY ==
[2023-11-05 12:34] LABS: Alanine Aminotransferase 26 U/L (0-40); Albumin Level 4.1 g/dL (3.5-5.0); Alkaline Phosphatase 86 U/L (39-117); Anion Gap 12 (12-20); Aspartate Amino Transferase 37 U/L (5-37); Bilirubin Total 0.6 mg/dL (0.0-1.0); Blood Urea Nitrogen 10 mg/dL (9-16); Calcium 9.3 mg/dL (8.4-10.2); Carbon Dioxide 30 mmol/L (22-29); Chloride 104 mmol/L (96-108); Estimated Glomerular Filt Rate > 60; Glucose Random 113 mg/dL (60-115); Sodium 142 mmol/L (135-145); Total Protein 7.7 g/dL (6.5-8.0)
== END 2023-11-05 08:37 | disposition home or self-care (01) ==
LOC: HO.HHCL 08:36
PROVIDERS: Visit Provider Student in an Organized Health Care Education/Training Program
DX: I10 Essential (primary) hypertension (principal)
CPT/HCPCS: 36415; 80053

== ENCOUNTER 2024-05-16 08:23 | Outpatient (REF) | payer MEDICARE, MEDICAID, SELFPAY ==
[2024-05-16 12:01] LABS: Estimated Average Glucose 117 mg/dL; Hemoglobin A1C 156.6332 umol/L; Hemoglobin A1c % 5.7 % (<6.0); Total Hemoglobin (HGBA1C) 4046.2774 umol/L
[2024-05-16 12:12] LABS: Creatinine Urine 281.63 mg/dL; Microalbum/Creatinine Ratio Ur 4.2 ug/mg cr (<30)
[2024-05-16 12:41] LABS: Alanine Aminotransferase 30 U/L (0-40); Albumin Level 3.9 g/dL (3.5-5.0); Alkaline Phosphatase 90 U/L (39-117); Anion Gap 11 (12-20); Aspartate Amino Transferase 40 U/L (5-37); Bilirubin Total 0.6 mg/dL (0.0-1.0); Blood Urea Nitrogen 10 mg/dL (9-16); Calcium 8.5 mg/dL (8.4-10.2); Carbon Dioxide 28 mmol/L (22-29); Chloride 108 mmol/L (96-108); Cholesterol 190 mg/dL (<200); Estimated Glomerular Filt Rate > 60; Glucose Random 115 mg/dL (60-115); HDL Cholesterol 35 mg/dL (>40); LDL Cholesterol Calculated 115 mg/dL (<100); Potassium 4.2 mmol/L (3.3-5.1); Sodium 143 mmol/L (135-145); Total Protein 7.4 g/dL (6.5-8.0); Triglycerides 204 mg/dL (<150)
[2024-05-16 12:55] LABS: Reflex LDLD? No
== END 2024-05-16 08:24 | disposition home or self-care (01) ==
LOC: HO.HHCL 08:23
PROVIDERS: Visit Provider Family Medicine
DX: I10 Essential (primary) hypertension (principal); R73.03 Prediabetes
CPT/HCPCS: 36415; 80053; 80061; 82043; 82570; 83036